=== PATIENT | male | born 1995 | race Two or more races ===

== ENCOUNTER 2024-12-01 12:02 | Emergency (ER) | payer OTHER ==
[~2024-12-01] VITALS: Ht 180.3 cm; Wt 108.0 kg
[2024-12-01 12:12] VITALS: TEMP 99.2
[2024-12-01] MEDS ORDERED: ACETAMINOPHEN ES 500 MG TABLET ONE (12:16)
[2024-12-01] MEDS: ACETAMINOPHEN ES 500 MG TABLET PO ONE (12:21)
[2024-12-01 12:27] VITALS: BP 130/74; O2SAT 99
== END 2024-12-01 12:27 | disposition home or self-care (01) ==
LOC: ER 12:02
DX: S43.014A Anterior dislocation of right humerus, initial encounter (principal); W18.39XA Other fall on same level, initial encounter; Y93.64 Activity, baseball; Y92.89 Other specified places as the place of occurrence of the external cause; Y99.8 Other external cause status
CPT/HCPCS: 73030-TC